=== PATIENT | male | born 1945 | race Caucasian/White ===

== ENCOUNTER 2017-03-25 00:13 | Day surgery (SDC) | payer MEDICARE, OTHER ==
[2017-03-25] VITALS (12 sets, daily range): BP systolic 101–130; BP diastolic 55–67; PULSE 54–60; RESP 13–22; O2SAT 92–94
[~2017-03-25] VITALS: Ht 170.2 cm; Wt 99.5 kg
[~2017-03-25 00:13] MED LIST: AMLO5TAB2 PO; ASPI-973 PO; CHOL200025 PO; CITA40TA13 PO; FINA5TAB9 PO; KLO1T PO; LISI1TAB9 PO; LOVA40TA PO; MULT-1073 PO; OMEP20TA86 PO; TAMS0.4C98 PO
[2017-03-25 09:24] LABS: BASOPHILS % (AUTO) 0.3 % (0-3); EOSINOPHILS % (AUTO) 2.2 % (0-5); MONOCYTES % (AUTO) 10.5 % (4-12); Mean Corpuscular Hemoglobin 30.4 pg (27.0-35.0); Mean Corpuscular Volume 89.6 fL (81-100); NEUTROPHILS % (AUTO) 67.2 % (40-74); Platelet Count 132 bil/L (150-400)
[2017-03-25] MEDS ORDERED: Heparin 1,000 Units/500 mL NS Premix IV ONE (09:27)
[2017-03-25] MEDS ORDERED: Nitroglycerin 50,000 mcg/250 mL D5W Premix IV ONE (09:27)
[2017-03-25] MEDS ORDERED: Heparin 1,000 Unit/mL 10 mL Inj ONE (09:28)
[2017-03-25] MEDS ORDERED: Heparin 5,000 Units/500 mL NS Premix IV ONE (09:28)
[2017-03-25 09:39] LABS: INR 1.04 ratio
[2017-03-25] MEDS ORDERED: LIP40 PO (10:00)
[2017-03-25] MEDS ORDERED: fentaNYL-PF 50 mCg/mL 2 mL Inj ONE (10:33)
[2017-03-25] MEDS ORDERED: 0.9% Sodium Chloride 1,000 ML ONE (10:33)
[2017-03-25] MEDS ORDERED: Atropine 1 mg/10 mL (Code) Syringe ONE (10:40)
--- NOTE | 2017-03-25 11:27 | ABG ---
DateTimeAnalyzed 11:19:00 -_ pH ____7.365 - 7.350 7.450 pCO2 ___55.6__ -mmHg 35.0 45.0 pO2 ___34.6__ -mmHg 69.0 116 HCO3- ___31.0__ -mmol/L 22.0 26.0 ABE ____4.6__ -mmol/L -2.0 2.0 tHb ___14.5__ -g/dL O2Hb ___62.6__ -% COHb ____0.8__ -% MetHb ____0.9__ -% sO2 ___63.7__ -% 25.0 FIO2 ___21.0__ -% Drawn By MD - Date/Time Notified____ 11:27:00 -_ Notified By [email or web address] - Notified Whom Sudhakar, Bhrigu MD -___ B 750 -mmHg tO2 ___12.7__ -Vol% [facility] test N/A -
--- NOTE | 2017-03-25 12:20 | PCM.CVCATH ---
Cardiac Cath Report Date of Service Mar 25, 2017 Primary Indication Severe mitral regurgitation. being evaluated for mitral valve repair Procedure coronary angiography, left heart cath, and right heart cath Vascular Access Right radial artery using 5 Fr slender sheath, closure with TR band. Right internal jugular vein using 6 Fr, closure with manual hold. Diagnostic Catheters Left main: [place] 4.5, 5 Fr (suboptimal engagement), JL3.5, 5Fr (optimal engagement) RCA: [place] 4.5, 5 Fr Procedure Details Coronary angiography details: The patient was brought to the cardiac catheterization lab in the fasting state. Patient was laid supine on the cardiac catheterization table and the right neck and the right forearm were prepped and draped in the usual sterile fashion. One percent Xylocaine was infiltrated over the right internal jugular vein and vascular access was then achieved under ultrasound guidance. [place] was completed through the sheath. Next, one percent xylocaine was infiltrated over the right radial artery and vascular acces was then achieved under ultrasound giudance. Guide wire was used to advance the catheter through the sheath and up into aortic sinuses and into the left ventricle. Left ventricular pressures were obtained and then coronary angiography was completed. The left coronary artery engagement was technically difficult with [place] 4.5 catheter and the catheter was then swapped for JL3.5 catheter. Guide wire was advanced through the catheter ahead of the tip of the catheter and the guide wire along with the catheter were pulled together out of the sheath. Medications/Fluoro Time Medications administered: 1.Fentanyl: 100 mcg IV 2. Midazolam: 2 mg IV 3. Heparin: 6000 units IV 4. Nitroglycerin: 300 mcg IA 5. Nitroglycerin: 100 mg IC Fluoroscopy Time: 8.8 minutes, 1644 mGy Contrast (Isovue): 100 mls Blood loss: 10 mls Findings 1) Coronary angiography: Co dominance a. Left main is angiographically normal b. LAD is medium caliber giving rise to medium caliber diagonal artery. The proximal LAD has mild luminal irregularities proximally at the take off of the first septal artery. c. LCx is a large caliber co-dominant vessel giving rise to two medium caliber obtuse marginal irregulariites. No angiographically significant disease is the noted in the LCx tree. d. RCA is a normal caliber vessel with no angiographically significant disease. 2) Left Heart catheterization: a. LVEDP is normal at 13 mmHg. b. No significant transaortic gradient on catheter pull-back. 3) Right heart cath: * RA Mean Pressure 5 mmHg * RV Pressure 23/-2 (RVEDP 4 mmHg) * PA Pressure 26/7 (mean 15 mmHg) * PCWP 9 mmHg * Richi Cardiac Output 4.36 L/min / Richi Cardiac Index 2.08 L/min/m2 Complications There were no periprocedural complications identified. Summary 1) No angiographically significant disease. 2) Normal right and left sided filling pressures with normal pulmonary artery pressures and normal cardiac output. Recommendations 1) Proceed with mitral valve repair. 2) No need for coronary revascularization. Shane De La Fuente MD Mar 25, 2017 12:20
--- NOTE | 2017-03-25 15:43 | NUR ---
Pt discharged to home, ambulatory, accompanied by spouse. Pt's Rt IJ site and Rt radial puncture site CDI with no bleeding or hematoma noted. Pt's IVs discontinued and VSS. Pt given all discharge instructions and had no further questions at time of d/c.
== END 2017-03-25 23:59 ==
LOC: SOUO 00:13
PROVIDERS: ATTEND Internal Medicine Cardiovascular Disease
DX: Z01.810 Encounter for preprocedural cardiovascular examination (principal); I34.0 Nonrheumatic mitral (valve) insufficiency; I34.1 Nonrheumatic mitral (valve) prolapse; I10 Essential (primary) hypertension; E78.5 Hyperlipidemia, unspecified; G47.33 Obstructive sleep apnea (adult) (pediatric); E66.9 Obesity, unspecified; Z68.33 Body mass index [BMI] 33.0-33.9, adult
CPT/HCPCS: 36415; 80048; 82375; 82803; 85025; 85610; 93460; 99152; 99153; C1769; C1887; C1894; J1644; J2250; J3010; J7030; Q9967